=== PATIENT | male | born 1935 | race Caucasian/White ===

== ENCOUNTER 2020-01-07 10:55 | Observation (INO) | payer MEDICARE ==
[~2020-01-07] VITALS: Ht 175.3 cm; Wt 75.6 kg
[~2020-01-07 10:55] MED LIST: FINA1TAB16 PO; LISI-170 PO; RIVA20TA PO; TAMS-11 PO
[2020-01-07] MEDS: SODIUM CHLORIDE 0.9% 1,000 ML IV SCH ×2 (11:11→17:06)
[2020-01-07 11:15] VITALS: BP 141/68
[2020-01-07] MEDS ORDERED: VIT1CAPS11 PO (11:22)
[2020-01-07] MEDS ORDERED: CHOL10003 PO (11:22)
[2020-01-07] MEDS ORDERED: PLEASE ENTER HEIGHT AND WEIGHT MC SCH (11:30)
[2020-01-07] MEDS ORDERED: CEFAZOLIN PMX 1GM/50ML 50 ML IVPB ONE (11:30)
[2020-01-07 11:46] LABS: BASOPHILS # (AUTO) 0.02 x10^3/uL (0-0.1); BASOPHILS % (AUTO) 0 % (0-1); EOSINOPHILS # (AUTO) 0.29 x10^3/uL (0-0.4); EOSINOPHILS % (AUTO) 7 % (1-7); LYMPHOCYTES # (AUTO) 0.63 x10^3/uL (1-3.4); LYMPHOCYTES % (AUTO) 15 % (22-44); MD NO; MEAN CORPUSCULAR HGB CONC 33.4 g/dL (33.2-36.2); MEAN CORPUSCULAR VOLUME 92.8 fL (81-97); MEAN PLATELET VOLUME 7.5 fL (7.4-10.4); MONOCYTES # (AUTO) 0.41 x10^3/uL (0.2-0.8); MONOCYTES % (AUTO) 10 % (2-9); NEUTROPHILS # (AUTO) 2.79 x10^3/uL (1.8-6.8); NEUTROPHILS % (AUTO) 67 % (42-75); PLATELET COUNT 254 x10^3/uL (130-400); RED BLOOD COUNT 3.76 x10^6/uL (4.38-5.82); RED CELL DISTRIBUTION WIDTH 14.6 % (9.4-14.8)
[2020-01-07 11:54] LABS: INTERNATIONAL NORMALIZED RATIO 1.05 (0.93-1.1); PROTHROMBIN TIME 11.1 Seconds (9.6-11.5)
[2020-01-07 11:57] LABS: ANION GAP 7 mmol/L (5-15); CALCIUM 8.9 mg/dL (8.5-10.1); CHLORIDE 111 mmol/L (98-107); CREATININE 0.93 mg/dL (0.7-1.3)
[2020-01-07] MEDS ORDERED: MIDAZOLAM 1 MG/ML, 5ML ONE (13:34)
[2020-01-07] MEDS ORDERED: FENTANYL PF 100 MCG/2ML ONE (13:34)
[2020-01-07] MEDS ORDERED: CEFAZOLIN 1,000 MG ONE (13:34)
[2020-01-07] MEDS ORDERED: LIDOCAINE 2%, 20ML ONE (13:34)
[2020-01-07] MEDS ORDERED: CEFAZOLIN PMX 1GM/50ML 50 ML ONE (13:34)
[2020-01-07] MEDS ORDERED: Hold all anticoagulants for 24 hours (including Lovenox and Heparin) MC PRN (15:00)
[2020-01-07] MEDS: SODIUM CHLORIDE FLUSH 10ML SYR IVF SCH (21:00)
[2020-01-07 21:08] VITALS: BP 135/78
[2020-01-07] MEDS: LISINOPRIL 20 MG TABLET PO SCH (21:11)
[2020-01-07] MEDS: CEFAZOLIN PMX 1GM/50ML 50 ML IVPB SCH (21:11)
[2020-01-08 00:15] VITALS: BP 156/76
[2020-01-08] MEDS: SODIUM CHLORIDE 0.9% 1,000 ML IV SCH (03:11)
[2020-01-08] MEDS: CEFAZOLIN PMX 1GM/50ML 50 ML IVPB SCH (05:14)
[2020-01-08] MEDS ORDERED: ACET325T26 PO (07:58)
[2020-01-08] MEDS: SODIUM CHLORIDE FLUSH 10ML SYR IVF SCH (09:00)
[2020-01-08] MEDS ORDERED: MULTIVITS,STRESS FORMULA 1 TABLET PO SCH (09:00)
[2020-01-08] MEDS ORDERED: TAMSULOSIN 0.4 MG CAP.ER.24H PO SCH (09:00)
[2020-01-08] MEDS ORDERED: CHOLECALCIFEROL 1,000 UNIT TABLET PO SCH (09:00)
[2020-01-08 09:30] VITALS: BP 143/87
[2020-01-08] MEDS: LISINOPRIL 20 MG TABLET PO SCH (10:03)
== END 2020-01-08 10:43 | disposition home or self-care (01) ==
LOC: CACL 10:55 → 5SO 14:37 → DCLOUNGE 01-08 10:35
PROVIDERS: ADMIT Internal Medicine Cardiovascular Disease; ATTEND Internal Medicine Cardiovascular Disease
DX: I44.1 Atrioventricular block, second degree (principal); I48.0 Paroxysmal atrial fibrillation; I10 Essential (primary) hypertension; C61 Malignant neoplasm of prostate; Z79.899 Other long term (current) drug therapy; Z79.01 Long term (current) use of anticoagulants
CPT/HCPCS: 33208; 36415; 71045; 80048; 85025; 85610; 96365; 96366; 99156; 99157; C1779; C1785; C1892; G0378; J0690; J2250; J3010; J3490